=== PATIENT | male | born 1980 | race Caucasian/White ===

== ENCOUNTER 2016-11-24 12:35 | Emergency (ER) | payer OTHER ==
[~2016-11-24] VITALS: Ht 182.9 cm; Wt 63.0 kg
[~2016-11-24 12:35] MED LIST: DEXA0.5T PO; PRED10 PO
[2016-11-24 12:52] VITALS: BP 113/81; PULSE 102; RESP 16; TEMP 98.7; O2SAT 97
[2016-11-24] MEDS ORDERED: ONDANSETRON ODT 4 MG TAB PO ONE (15:15)
[2016-11-24] MEDS ORDERED: ZOFR4TAB3 SL (16:30)
--- NOTE | 2016-11-24 16:30 | PD ---
HPI Chief Complaint: GI Complaint Time Seen by Provider: 15:03 Travel History International Travel<30 days: No Contact w/Intl Traveler<30days: No Traveled to known affect area: No History of Present Illness HPI 36 y/o male presents with nonbloody emesis and diarrhea. He states that he is ran out of his nausea medication. He denies any other concurrent complaints. Quality is nonbloody. Severity is multiple episodes. He denies specific sick contacts. He states he had blood work 2 days ago and it was normal. PFSH Past Medical History Blood Disorders: Yes (ITP: "LOW PLATELETS" PER PT) Diminished Hearing: No Shingles: Yes (MARCH 2015) Past Surgical History Other Surgery: Yes (RIGHT GROIN LYMPH BIOPSY: MAY, 2015: NEGATIVE, SPLENECTOMY) Social History Alcohol Use: Yes (OCCASIONALLY) Tobacco Use: No Substance Use: No Allergies-Medications (Allergen,Severity, Reaction): Coded Allergies: Codeine (Verified Adverse Reaction, Intermediate, Mouth ulcers, 11/24/16) Penicillin (Verified Adverse Reaction, Intermediate, Mouth ulcers, 11/24/16) Reported Meds & Prescriptions Reported Meds & Active Scripts Active Zofran Odt (Ondansetron Odt) 4 Mg Tab 4 Mg SL Q6HR PRN Review of Systems Except as stated in HPI: all other systems reviewed are Neg Physical Exam Narrative GENERAL: Well-nourished, well-developed patient. Well-appearing SKIN: Warm and dry. HEAD: Normocephalic and atraumatic. EYES: No injection or drainage. ENT: No nasal drainage noted. NECK: Supple, trachea midline. CARDIOVASCULAR: Regular rate and rhythm RESPIRATORY: No increased effort. No accessory muscle use. GASTROINTESTINAL: Abdomen soft, non-tender, nondistended. EXTREMITIES: No edema. NEUROLOGICAL: Awake and alert. Motor and sensory grossly within normal limits. Normal speech. Data Data Last Documented VS Vital Signs Date Time Temp Pulse Resp B/P Pulse Ox O2 Delivery O2 Flow Rate FiO2 11/24/16 12:52 98.7 102 16 113/81 97 Orders Ondansetron Odt (Zofran Odt) (11/24/16 15:15) Oral Rehydration (11/24/16 15:34) MDM Medical Decision Making Medical Screen Exam Complete: Yes Emergency Medical Condition: Yes Medical Record Reviewed: Yes (past history confirmed) Differential Diagnosis Gastroenteritis, dehydration with renal failure, electrolyte abnormality Narrative Course Patient with benign exam and vitals. Will dose with Zofran and orally rehydrate Patient without emesis here, tolerating oral rehydration,Patient denies any new complaints and states that they are feeling better. all questions answered. Patient knows that follow up is incumbent on them and to return to the emergency room immediately if new or worsening symptoms develop. Patient given strict return precautions, vitals reviewed and are normal, agrees to further workup as an outpatient. Diagnosis Primary Impression: Vomiting and diarrhea Patient Instructions: General Instructions Additional Instructions: zofran as needed, follow with primary this week, return as needed Med/Other Pt SpecificInfo: Prescription(s) given Scripts Ondansetron Odt (Zofran Odt)4 Mg Tab4 Mg SL Q6HR PRN (Nausea/Vomiting) #10 TAB Prov:Lucia Toth MD 11/24/16 Disposition: 01 DISCHARGE HOME Condition: Stable Lucia Toth MD Nov 24, 2016 16:30
== END 2016-11-24 17:07 | disposition home or self-care (01) ==
LOC: PHED 12:35
DX: R11.10 Vomiting, unspecified (principal); R19.7 Diarrhea, unspecified; D69.3 Immune thrombocytopenic purpura
CPT/HCPCS: 99283